=== PATIENT | female | born 1965 | race Caucasian/White ===

== ENCOUNTER 2019-07-22 10:23 | Emergency (ER) | payer MEDICARE, OTHER ==
[~2019-07-22] VITALS: Ht 167.6 cm; Wt 92.1 kg
[~2019-07-22 10:23] MED LIST: ARIP30TA3 PO
--- NOTE | 2019-07-22 10:40 | NUR ---
bib ra 89 and son, from home, "screaming and rolling on the ground",-si/hi, patient did not take her meds x 2 weeks, EMS gave her haldol and benadryl on scene. On room air, breathing evenly and unlabored. connected to the monitor and pulse ox. son and at bedside, patient verbalized that she is not suicidal or monicidal. Will continue to monitor accordingly.
[2019-07-22 11:06] LABS: BASOPHILS % (AUTO) 0.6 % (0.0-2.0); EOSINOPHILS % (AUTO) 3.4 % (0.0-6.0); HEMATOCRIT 41 % (33-45); HEMOGLOBIN 13.6 g/dL (11.5-14.8); LYMPHOCYTES # (AUTO) 2.1 /CMM (0.8-4.8); LYMPHOCYTES % (AUTO) 27.5 % (20.0-44.0); MEAN CORPUSCULAR HGB CONC 33 g/dl (31.0-36.0); MEAN CORPUSCULAR VOLUME 85 fL (82-100); MONOCYTES # (AUTO) 0.6 /CMM (0.1-1.30); MONOCYTES % (AUTO) 7.2 % (2.0-12.0); NEUTROPHILS # (AUTO) 4.7 /CMM (1.8-8.9); NEUTROPHILS % (AUTO) 61.3 % (43.0-81.0); PLATELET COUNT (AUTO) 360 /CMM (150-450); RED BLOOD CELL COUNT(AUTO) 4.86 MIL/uL (4.0-5.2); WHITE BLOOD COUNT (AUTO) 7.7 K/uL (4.3-11.0)
[2019-07-22 11:13] LABS: CALCIUM, SERUM 9.5 mg/dL (8.5-10.1); CARBON DIOXIDE 28 mmol/L (21-32); CHLORIDE 104 mmol/L (98-107); CREATININE 0.9 mg/dL (0.6-1.3); GLUCOSE 124 mg/dL (74-106); POTASSIUM 4.2 mmol/L (3.5-5.1); SODIUM SERUM 141 mmol/L (136-145); UREA NITROGEN, BLOOD 13 mg/dL (7-18)
[2019-07-22 11:19] LABS: ACETAMINOPHEN 0 ug/ml (10-30); ALANINE AMINOTRANSFERASE 34 U/L (12-78); ALBUMIN 3.4 g/dL (3.4-5.0); ALCOHOL, BLOOD < 3 mg/dL (0-0); ALKALINE PHOSPHATASE 113 U/L (46-116); ASPARTATE AMINOTRANSFERASE 17 U/L (15-37); BILIRUBIN,DIRECT 0.1 mg/dL (0.0-0.2); BILIRUBIN,TOTAL 0.2 mg/dL (0.2-1.0); SALICYLATE 1.3 mg/dL (2.8-20.0)
[2019-07-22] MEDS ORDERED: HALOPERIDOL LACTATE INJ 5 MG/ML VIAL IM ONE (11:30)
[2019-07-22] MEDS ORDERED: HALOPERIDOL LACTATE INJ 5 MG/ML VIAL ONE (11:32)
--- NOTE | 2019-07-22 11:42 | NUR ---
MEDICATED ORDERED, PT FORTINO WELL. PT CALM & COOPERATIVE, FAMILY & SITTER @ BS.
[2019-07-22 12:54] LABS: APPEARANCE,URINE Clear (CLEAR); BILIRUBIN,URINE Negative (NEGATIVE); BLOOD, URINE Trace-lysed Ery/uL (NEGATIVE); COLOR,URINE Yellow (YELLOW); KETONES,URINE Negative (NEGATIVE); LEUKOCYTE ESTERASE ,URINE Negative (NEGATIVE); NITRITE, URINE Negative (NEGATIVE); PROTEIN,URINE Negative (NEGATIVE); UGLUCOSE Negative (NEGATIVE); UROBILINOGEN,URINE 0.2 EU/dL (0.2)
[2019-07-22 13:01] LABS: BACTERIA,URINE Few /HPF (None Seen); SQUAMOUS EPITHELIAL CELL,UR Few /HPF (None Seen); WBC,URINE 0-2 /HPF (0-3)
--- NOTE | 2019-07-22 13:33 | NUR ---
LABOR OPERATOR ARMANI RANGEL 1HR
--- NOTE | 2019-07-22 14:25 | NUR ---
ARMANI ETA 20 MINUTES
--- NOTE | 2019-07-22 15:56 | NUR ---
Patient discharged to home in stable condition. Written and verbal after care instructions given. Patient verbalizes understanding of instruction.
[2019-07-22 15:57] VITALS: BP 124/80
== END 2019-07-22 15:57 | disposition home or self-care (01) ==
LOC: ER 10:30
DX: R44.0 Auditory hallucinations (principal); F32.9 Major depressive disorder, single episode, unspecified; Z79.899 Other long term (current) drug therapy
CPT/HCPCS: 36415; 80048; 80076; 80305; 80307; 80329; 81001; 85025; 96372; 99284; G0480; J1630; 81000-TC

== ENCOUNTER 2022-02-05 17:30 | Inpatient (IN) | payer MEDICARE, OTHER ==
[~2022-02-05] VITALS: Ht 162.6 cm; Wt 84.8 kg
--- NOTE | 2022-02-05 17:56 | NUR ---
DEB ([facility]) [phone]
--- NOTE | 2022-02-05 18:15 | NUR ---
BIBRA39 FROM HOME, PER EMS, FAMILY CALLED BECAUSE PATIENT WAS TRYING TO JUMP OFF WINDOW, HX OF PSYCH, TAKES HALDOL. THE PATIENT RESPONSIVE TO TACTILE STIMULI BY OPENING EYES. IN ROOM AIR AND DENIES SOB. RESPIRATION REGULAR AND UNLABORED. WILL CONTINUE TO MONITOR THE PATIENT.
--- NOTE | 2022-02-05 18:30 | NUR ---
COVID ANTIGEN COLLECTED AND SENT TO LAB
--- NOTE | 2022-02-05 18:32 | NUR ---
URINE SAMPLE COLLECTED AND SENT TO LAB
[2022-02-05 19:22] LABS: ALANINE AMINOTRANSFERASE 29 U/L (12-78); ALKALINE PHOSPHATASE 132 U/L (46-116); ASPARTATE AMINOTRANSFERASE 13 U/L (15-37); BILIRUBIN,TOTAL 0.1 mg/dL (0.2-1.0); CALCIUM, SERUM 8.7 mg/dL (8.5-10.1); CARBON DIOXIDE 26 mmol/L (21-32); CHLORIDE 109 mmol/L (98-107); GLUCOSE 162 mg/dL (74-106); POTASSIUM 4.1 mmol/L (3.5-5.1); SODIUM SERUM 142 mmol/L (136-145); TOTAL PROTEIN, SERUM 7.8 g/dL (6.4-8.2); UREA NITROGEN, BLOOD 22 mg/dL (7-18)
[2022-02-05 19:24] LABS: ACETAMINOPHEN < 2 ug/ml (10-30); ALCOHOL, BLOOD < 3 mg/dL (0-0)
[2022-02-05 19:51] LABS: BILIRUBIN,URINE NEGATIVE (NEGATIVE); COLOR,URINE YELLOW (YELLOW); LEUKOCYTE ESTERASE ,URINE NEGATIVE (NEGATIVE); NITRITE, URINE NEGATIVE (NEGATIVE); PROTEIN,URINE 30 mg/dl (NEGATIVE); UGLUCOSE NEGATIVE (NEGATIVE)
[2022-02-05 19:56] LABS: BASOPHILS # (AUTO) 0.1 K/uL (0.0-0.2); BASOPHILS % (AUTO) 0.6 % (0.0-2.0); EOSINOPHILS % (AUTO) 1.2 % (0.0-6.0); HEMATOCRIT 42 % (33-45); HEMOGLOBIN 13.6 g/dL (11.5-14.8); LYMPHOCYTES # (AUTO) 2.4 K/uL (0.8-4.8); LYMPHOCYTES % (AUTO) 22.8 % (20.0-44.0); MEAN CORPUSCULAR HGB CONC 32 g/dl (31.0-36.0); MEAN CORPUSCULAR VOLUME 79 fL (82-100); MONOCYTES % (AUTO) 9.5 % (2.0-12.0); NEUTROPHILS # (AUTO) 6.9 K/uL (1.8-8.9); NEUTROPHILS % (AUTO) 65.9 % (43.0-81.0); PLATELET COUNT (AUTO) 404 K/uL (150-450); RED BLOOD CELL COUNT(AUTO) 5.27 MIL/uL (4.0-5.2); WHITE BLOOD COUNT (AUTO) 10.5 K/uL (4.3-11.0)
[2022-02-05 20:02] LABS: BACTERIA,URINE None seen /HPF (None Seen); MUCUS,URINE Few /LPF (None Seen); SQUAMOUS EPITHELIAL CELL,UR 0-2 /HPF (None Seen); WBC,URINE 0-2 /HPF (0-3)
--- NOTE | 2022-02-05 21:48 | NUR ---
[facility]
[2022-02-05] MEDS ORDERED: HALOPERIDOL LACTATE INJ 5 MG/ML VIAL ONE (22:10)
[2022-02-05] MEDS ORDERED: diphenhydrAMINE HCL 50 MG/ML VIAL ONE (22:10)
[2022-02-05] MEDS ORDERED: LORAZEPAM INJ 2 MG/ML VIAL ONE (22:11)
[2022-02-05] MEDS ORDERED: LORAZEPAM INJ 2 MG/ML VIAL IM ONE (22:30)
[2022-02-05] MEDS ORDERED: diphenhydrAMINE HCL 50 MG/ML VIAL IM ONE (22:30)
[2022-02-05] MEDS ORDERED: HALOPERIDOL LACTATE INJ 5 MG/ML VIAL IM ONE (22:30)
--- NOTE | 2022-02-06 01:55 | NUR ---
REPORT GIVEN TO CAROLE FOR ANDREAS
--- NOTE | 2022-02-06 02:20 | NUR ---
PT TO GPS VIA [facility].
--- NOTE | 2022-02-06 02:20 | NUR ---
RN RECEIVING TRANSFER FROM ER NOTE PATIENT ARRIVED TO UNIT VIA GURNEY FROM ER. PATIENT WAS TRANSFERRED FROM GURNEY TO BED BY STAFF. PATIENT IS REPORTED TO BE SELECTIVELY MUTE FROM REPORT, AND WAS NON-RESPONSIVE TO THIS RN. BS CHECKED AND REVEALED TO BE 119. PATIENT IS ADMITTED ON A 5150 HOLD FOR GD. PATIENT WAS BIBA FROM HOME D/T ATTEMPTS AT JUMPING OUT OF WINDOW. PATIENT IS NON-VERBAL; HOWEVER, SHE HAD RECEIVED A HALDOL/ATIVAN/BENADRYL IN THE ER D/T HIGH AGITATION. PATIENT'S APPEARANCE IS RELATIVELY KEMPT. PATIENT IS MALODOROUS - SMELLING OF URINE. NO S/S OF DISTRESS; BREATHING SYMMETRICAL. PATIENT REFUSED TO SIGN NECESSARY INTAKE PAPERWORK BECAUSE SHE WAS AGITATED. PATIENT ADVISED OF HER HOLD AND GIVEN PATIENT'S RIGHTS BOOKLET. PATIENT'S BELONGINGS ACCOUNTED FOR, LOGGED INTO SHEET, AND PLACED IN PHYSICAL CHART. CONTRABAND FOUND WAS A STRING IN HER SHORTS; CONTRABAND REMOVED AND STORED IN HALLWAY PATIENT LOCKER. PATIENT'S SKIN WAS ASSESSED, PHOTOS TAKEN, AND PLACED IN CHART. PATIENT WAS ORIENTED TO THE UNIT. SAFETY MEASURES IN PLACE: BED LOCKED, AT LOWEST POSITION, RAILS UP X2, BED ALARM ON. WILL CONTINUE TO MONITOR PATIENT.
[2022-02-06] MEDS ORDERED: LORAZEPAM 1 MG TABLET PO PRN (04:00)
[2022-02-06] MEDS ORDERED: TEMAZEPAM 15 MG CAPSULE PO PRN (04:00)
[2022-02-06 08:00] VITALS: BP 141/86
[2022-02-06] MEDS ORDERED: HALO2TAB PO (09:18)
--- NOTE | 2022-02-06 10:48 | NUR ---
AGATA Initial Discharge Plan: Patient currently resides at [address] [place] [address] Apt [facility], [place] [address]; ([phone]). Patient lives with Esteban ([phone]). AGATA spoke with patient's son Vamsi ([phone]) who stated that pt will return back home upon discharge. AGATA will coordinate with pt, family, and treatment team to help coordinate appropriate discharge.
--- NOTE | 2022-02-06 10:49 | NUR ---
AGATA Family Contact: AGATA contacted patient's son Vamsi ([phone]) to gather collateral and discuss treatment plan and discharge plan. Vamsi stated that pt will return back home upon discharge.
--- NOTE | 2022-02-06 10:50 | NUR ---
SW Clinical Note: Patient placed on a 5150 hold for GD. Patient threatened to bash a window at home. Patient has been aggressive at home and has been experiencing hallucinations. Patient currently resides at [address] [place] [address]; ([phone]). Patient lives with Esteban ([phone]) and son Vamsi ([phone]).
[2022-02-06 16:00] VITALS: BP 153/87
--- NOTE | 2022-02-06 19:00 | NUR ---
Opening Notes" alert sitting on the edge of her bed smiling when I walked in she was talkative...about she is from [place], how the the words I speak sound differt from the sound of the cymraes language. requested water and was nice and cooperative says "thank-you" appropriately made her aware I would be checking on her for safety
[2022-02-06 19:28] VITALS: BP 145/86
[2022-02-06 20:07] VITALS: BP 145/86
--- NOTE | 2022-02-07 06:10 | NUR ---
CLOSING NOTES: alert and orientated X2 stayed in her room this 12 hours. medicated for insomnia with Restoril 15 mg and effective sleeping 7 hours She enjoys talking about herself. From [place] and words sound different here in [place]. Cooperative and medicine compliant
[2022-02-07 08:00] VITALS: BP 134/78
[2022-02-07] MEDS: HALOPERIDOL 5 MG TABLET PO SCH ×3 (08:38→17:48)
[2022-02-07] MEDS: DIVALPROEX SODIUM 250 MG TABLET.DR PO SCH ×3 (08:38→17:48)
[2022-02-07] MEDS: BENZTROPINE MESYLATE (1 MG) 1 MG TABLET PO SCH ×3 (08:38→17:48)
--- NOTE | 2022-02-07 08:51 | NUR ---
Individual Therapy: SW attempted to conduct therapy. Pt was blankly staring and was unable to have a proper conversation. Pt did not respond to this real estate underwriter. Pt appeared withdrawn in her room. SW unable to conduct therapy at this time.
--- NOTE | 2022-02-07 09:21 | NUR ---
RN-CO: Patient was given Ativan 1 mg po for heavily responding to internal stimuli and severly paranoid.
[2022-02-07 16:00] VITALS: BP 143/77
--- NOTE | 2022-02-07 19:45 | NUR ---
GPS RN OPENING NOTES: RECEIVED PATIENT WATCHING TV IN DAY ROOM. A/O X1-2, PASSIVE, DISORIENTED, DISORGANIZED. RESPONDING INTERMITTENTLY, REORIENTED PATIENT TO PRESENT SITUATION. DENIES PAIN, DENIES SI AT THIS TIME. V/S WNL. NO S/S OF DISTRESS. RESPIRATION EVEN AND UNLABORED WITH EQUAL RISE AND FALL OF THE CHEST, ON ROOM AIR. OFFERED FLUID AND SNACKS TOLERATED. WILL CONTINUE TO MONITOR Q15 FOR MOOD, SAFETY AND BEHAVIOR.
[2022-02-07 20:00] VITALS: BP 128/81
--- NOTE | 2022-02-08 06:39 | NUR ---
GPS RN CLOSING NOTES: PATIENT IS CURRENTLY SLEEPING IN BED. PATIENT SLEPT 9HRS THIS SHIFT. NO S/S OF DISTRESS. RESPIRATION EVEN AND UNLABORED WITH EQUAL RISE AND FALL OF THE CHEST, ON ROOM AIR. BED IN LOW LOCKED POSITION, SIDE RAILS UP X2 FOR SAFETY, CALL LAMAR WITHIN REACH. ALL PATIENT CARE NEEDS HAVE BEEN MET ANTICIPATED. WILL CONTINUE TO MONITOR Q15 FOR SAFETY, MOOD AND BEHAVIOR AND ENDORSE TO AM SHIFT.
--- NOTE | 2022-02-08 07:15 | NUR ---
WOUND CARE CONSULT: PT RESTING AT THIS TIME. REVIEWED CHART, NURSING DOCUMENTATION AND SPOKE WITH NURSING STAFF. PER ADMISSION PHOTOS, THERE ARE AREAS OF PATCHY SKIN LESIONS, PRESENT ON ADMISSION. DEFER TO PMD. CURRENT REJI SCORE IS 19. WILL SEE PRN.
[2022-02-08 08:00] VITALS: BP 149/84
[2022-02-08] MEDS: BENZTROPINE MESYLATE (1 MG) 1 MG TABLET PO SCH ×3 (08:31→16:41)
[2022-02-08] MEDS: DIVALPROEX SODIUM 250 MG TABLET.DR PO SCH ×3 (08:31→16:41)
[2022-02-08] MEDS: HALOPERIDOL 5 MG TABLET PO SCH ×3 (08:31→16:41)
[2022-02-08 16:00] VITALS: BP 131/77
--- NOTE | 2022-02-08 18:32 | NUR ---
RN-NOTES PATIENT IN HER ROOM SITTING IN BED ALERT X1 INTERACTING WITH HER SON AT BED SIDE,GUARDED RESPONDING TO INTERNAL STIMULI/NOTED PATIENT TALKING AND SINGING TO SELF. COMPLIANT WITH MEDICATIONS. AMBULATORY STEADY GAIT.ALL NEEDS ATTENDED AND ANTICIPATED. WILL CONT. MONITORING FOR SAFETY AND BEHAVIOR.WILL ENDORSE TO INCOMING NURSE FOR CONTINUITY OF CARE.
--- NOTE | 2022-02-08 19:30 | NUR ---
GPS RN OPENING NOTE RECEIVED PT IN BED AWAKE, SON AT BEDSIDE. A/OX2. PT STABLE ON ROOM AIR. NO SOB OR S/S OF RESPIRATORY DISTRESS. BREATHING EVEN AND UNLABORED. NO COMPLAINTS OF PAIN AT THIS TIME. PT RESPONDS TO INTERNAL STIMULI AND IS DISORGANIZED. PT DENIES SUICIDAL OR HOMICIDAL IDEATION AT THIS TIME. SAFETY PRECAUTIONS IN PLACE. BED IN LOWEST LOCKED POSITION, SIDE RAILS RAISED, BED ALARM ON, AND CALL LIGHT WITHIN REACH. ALL NEEDS MET AT THIS TIME.
[2022-02-08 20:00] VITALS: BP 158/89
[2022-02-08 21:23] VITALS: BP 117/53
--- NOTE | 2022-02-09 06:43 | NUR ---
GPS RN CLOSING NOTE PT IN BED AWAKE. A/OX2. PT STABLE ON ROOM AIR. NO SOB OR S/S OF RESPIRATORY DISTRESS. BREATHING EVEN AND UNLABORED. NO COMPLAINTS OF PAIN AT THIS TIME. PT RESPONDS TO INTERNAL STIMULI AND IS DISORGANIZED. PT DENIES SUICIDAL OR HOMICIDAL IDEATION AT THIS TIME. ALL DUE MEDS GIVEN ORDERED. SAFETY PRECAUTIONS IN PLACE AT ALL TIMES. BED IN LOWEST LOCKED POSITION, SIDE RAILS RAISED, BED ALARM ON, AND CALL LIGHT WITHIN REACH. ALL NEEDS MET AT THIS TIME AND WILL ENDORSE TO ONCOMING NURSE FOR ANDREAS.
[2022-02-09 08:00] VITALS: BP 128/99
[2022-02-09] MEDS: BENZTROPINE MESYLATE (1 MG) 1 MG TABLET PO SCH ×3 (08:54→17:56)
[2022-02-09] MEDS: HALOPERIDOL 5 MG TABLET PO SCH ×3 (08:54→17:56)
[2022-02-09] MEDS: DIVALPROEX SODIUM 250 MG TABLET.DR PO SCH ×3 (08:54→17:56)
--- NOTE | 2022-02-09 10:27 | NUR ---
Individual Therapy: SW attempted to conduct therapy. Pt was unable to maintain proper eye contact. Pt was responding to internal stimuli. SW unable to conduct appropriate therapy at this time.
[2022-02-09 16:00] VITALS: BP 117/81
--- NOTE | 2022-02-09 19:07 | NUR ---
NOTED LEONIDAS LOWER EXT EDMA Tasneem trinh QUALITY CONTROL LAB TECH NOTIFIED NEW ORDER DOPPLER US .ALL ORDERS CARRIED OUT .
--- NOTE | 2022-02-09 19:15 | NUR ---
GPS RN NOTES RECEIVED PATIENT IN BED RESTING IN BED. ALERT AND ORIENTED X2. NO S/SX OF ACUTE DISTRESS NOTED. PATIENT REMAINS ISOLATIVE, WITHDRAWN, COOPERATIVE TO CARE. ENCOURAGED TO ATTEND GROUP ACTIVITIES. SAFETY PRECAUTIONS IN PLACE. WILL CONTINUE TO MONITOR Q15MIN ROUNDS FOR SAFETY AND BEHAVIOR.
--- NOTE | 2022-02-09 19:36 | NUR ---
GPS RN NOTES SPOKE TO DENIS FROM RADIOLOGY DEPARTMENT REGARDING DOPPLER VENOUS BILATERAL EXTREMITIES THE ETA TO PERFORM THE PROCEDURE. PER DENIS, HE WILL CONTACT THE ON-CALL AND GIVE US A CALL BACK. Addendum: 02/10/22 at 0608 by ELANA HERNANDEZ RN TRIED TO CALL RADIOLOGY DEPARTMENT NO ONE IS ANSWERING THE PHONE. WILL ENDORSE TO AM SHIFT FOR CONTINUITY OF CARE.
[2022-02-10 08:00] VITALS: BP 125/72
[2022-02-10] MEDS: BENZTROPINE MESYLATE (1 MG) 1 MG TABLET PO SCH ×3 (08:20→16:19)
[2022-02-10] MEDS: DIVALPROEX SODIUM 250 MG TABLET.DR PO SCH ×3 (08:20→16:19)
[2022-02-10] MEDS: HALOPERIDOL 5 MG TABLET PO SCH ×3 (08:20→21:38)
--- NOTE | 2022-02-10 09:00 | NUR ---
GPS/RN RECEIVED PATIENT RESTING IN HER BED. NO ACUTE DISTRESS NOTED. VSS.TALKS TO HERSELF. COMPLIANT WITH DAILY MEDICATIONS. AMBULATORY STEADY GAIT. ALL NEEDS ATTENDED AND ANTICIPATED. WILL CONTINUE MONITORING Q 15MIN FOR SAFETY AND BEHAVIOR.
--- NOTE | 2022-02-10 15:57 | NUR ---
Called the radiology and spoke to Joel regarding the Duplex Venous on the lower extremities and he gave the number of Joel at [phone] and nobody is answering and can not leave a message. Called Joel again and said he will let him know.
[2022-02-10 16:00] VITALS: BP 129/76
--- NOTE | 2022-02-10 16:53 | NUR ---
Called [phone] and spoke to Puma and said he will send someone to scan today.
[2022-02-10 20:39] VITALS: BP 120/68
--- NOTE | 2022-02-11 01:45 | NUR ---
RN NOTES: RECEIVED PATIENT IN BED ACCOMPANIED BY FAMILY, APPEARS CALM AND ON PLEASANT DISPOSITION,NO COMPLAIN OF PAIN AND DISCOMFORT AT THIS TIME, ON ROOM AIR SATURATING WELL, NO ACUTE DISTRESS WAS OBSERVED, ON MEDICATION COMPLIANCE, AMBULATORY,ON STABLE GAIT, WITH SUPERVISION, Q15MIN FOR SAFETY AND BEHAVIOR.PATIENT KEPT CLEAN AND DRY PLACED COMFORTABLY IN BED, ALL NEEDS MET WILL CONTINUE TO MONITOR.
[2022-02-11 08:06] VITALS: BP 152/80
[2022-02-11] MEDS: HALOPERIDOL 5 MG TABLET PO SCH ×3 (08:27→21:33)
[2022-02-11] MEDS: BENZTROPINE MESYLATE (1 MG) 1 MG TABLET PO SCH ×3 (08:27→16:48)
[2022-02-11] MEDS: DIVALPROEX SODIUM 250 MG TABLET.DR PO SCH ×3 (08:28→16:48)
[2022-02-11 16:07] VITALS: BP 150/79
[2022-02-11 21:47] VITALS: BP 152/86
--- NOTE | 2022-02-11 23:00 | NUR ---
GPS RN NOTES PT RESTING IN BED. A/O X2. BREATHING EVEN AND NON-LABORED ON ROOM AIR. NOT IN APPARENT DISTRESS. GUARDED, UNKEMPT, DISHEVELED. ENGAGES IN CONVERSATION W/ NURSE. AMBULATORY W/ STEADY GAIT. COMPLIANT WITH MEDS. ALL NEEDS ATTENDED AND ANTICIPATED. WILL CONTINUE MONITORING Q15MIN FOR SAFETY AND BEHAVIOR.
--- NOTE | 2022-02-12 06:12 | NUR ---
WEEKLY SKIN ASSESSMENT DONE AND PHOTOS TAKEN. PT COOPERATIVE AND ENGAGES IN CONVERSATION.
[2022-02-12 08:00] VITALS: BP 139/77
[2022-02-12] MEDS: DIVALPROEX SODIUM 250 MG TABLET.DR PO SCH ×3 (09:23→17:49)
[2022-02-12] MEDS: BENZTROPINE MESYLATE (1 MG) 1 MG TABLET PO SCH ×3 (09:23→17:49)
[2022-02-12] MEDS: HALOPERIDOL 5 MG TABLET PO SCH ×3 (09:23→21:38)
[2022-02-12 16:00] VITALS: BP 150/85
--- NOTE | 2022-02-12 16:22 | NUR ---
Individual Counseling: SW met with pt. for individual counseling. Pt. stated her mood is happy. Pt. appeared with euthymic mood & affect. Pt. discussed her support system includes her family. SW used active listening. Pt. stated she wants to speak to her son and SW informed pt. she can call him. Pt. stated she would call her son now.
[2022-02-12 19:37] VITALS: BP 142/78
--- NOTE | 2022-02-12 20:32 | NUR ---
RN NOTES DOC. RAHEL WAS INFORM REGARDING DOPPLER VENOUS BLE DONE RESULT NEGATIVE FOR DVT ON 02/10/22.PT SON IS REQUESTING FOR MED THAT CAN DECREASE SWELLING..DOC. REPLIED HE SAID I DONT KNOW ANYTHING ABOUT THE PT.ENDORSE TO CONTACT DAY SHIFT PLZ.
[2022-02-13 08:00] VITALS: BP 125/75
--- NOTE | 2022-02-13 08:00 | NUR ---
RN-CO: Instructed patient to elevate bilateral ext. Pt verbalized understanding.
[2022-02-13] MEDS: BENZTROPINE MESYLATE (1 MG) 1 MG TABLET PO SCH ×3 (08:13→16:46)
[2022-02-13] MEDS: HALOPERIDOL 5 MG TABLET PO SCH ×3 (08:13→21:30)
[2022-02-13] MEDS: DIVALPROEX SODIUM 250 MG TABLET.DR PO SCH ×2 (08:13→16:46)
--- NOTE | 2022-02-13 09:35 | NUR ---
RN-CO: PT IS SITTING IN ACTIVITY ROOM. NO ACUTE DISTRESS NOTED.VSS. COMPLIANT WITH 1300 MEDICATIONS. AMBULATORY STEADY GAIT. ALL NEEDS ATTENDED AND ANTICIPATED. WILL CONTINUE MONITORING Q 15MIN FOR SAFETY AND BEHAVIOR.
--- NOTE | 2022-02-13 10:00 | NUR ---
RN-CO: Instructed pt to elevate bilateral lower ext.
--- NOTE | 2022-02-13 12:03 | NUR ---
Court Notification: SW attempted to contact pt's Esteban ([phone]) and left a voicemail of [phone] hearing is today.
[2022-02-13] MEDS ORDERED: ACETAMINOPHEN 325 MG TABLET PO PRN (13:00)
[2022-02-13] MEDS ORDERED: BLOOD SUGAR DIAGNOSTIC 1 EACH STRIP IN ONE (13:00)
[2022-02-13] MEDS ORDERED: MAG HYDROX/AL HYDROX/SIMETH 30 ML UDC PO PRN (13:00)
[2022-02-13] MEDS ORDERED: TEMAZEPAM 7.5 MG CAPSULE PO PRN (13:00)
[2022-02-13] MEDS ORDERED: MAGNESIUM HYDROXIDE 30 ML UDC PO PRN (13:00)
--- NOTE | 2022-02-13 13:40 | NUR ---
Court Hearing: Patient's court hearing for [id number] was today and it was upheld for GD.
--- NOTE | 2022-02-13 14:04 | NUR ---
RN-CO: Patient refused blood sugar check, she stated " I don't like taht I am not diabetic."
[2022-02-13 16:00] VITALS: BP 131/71
--- NOTE | 2022-02-13 18:42 | NUR ---
RN-CO: Paged Dr Nayak regarding patient's bilateral lower extremities edema.
--- NOTE | 2022-02-13 19:15 | NUR ---
GPS RN NOTES PATIENT IN BED RESTING COMFORTABLY. ALERT AND ORIENTED X2. NO S/SX OF ACUTE DISTRESS NOTED. PATIENT IS COOPERATIVE TO CARE, WITH LIMITED INTERACTION WITH PEERS, INSTRUCTED PATIENT TO ELEVATE BILATERAL LOWER EXTREMITIES TO DECREASE SWELLING. PATIENT VERBALIZED UNDERSTANDING. ENCOURAGED TO ATTEND IN GROUP ACTIVITIES. NO VERBALIZATION OF THOUGHTS AND FEELINGS. SAFETY PRECAUTIONS IN PLACE. WILL CONTINUE TO MONITOR Q15MIN ROUNDS FOR SAFETY AND BEHAVIOR.
[2022-02-13 21:18] VITALS: BP 125/68
[2022-02-13] MEDS: DIVALPROEX SODIUM 500 MG TABLET.DR PO SCH (21:30)
[2022-02-14 07:17] LABS: CHOLESTEROL 170 mg/dL (<200); HDL CHOLESTEROL 37 mg/dL (40-60); LDL 113 mg/dL (0-99); TRIGLYCERIDES 142 mg/dL (30-150)
[2022-02-14 07:19] LABS: ALBUMIN 2.5 g/dL (3.4-5.0); BILIRUBIN,TOTAL 0.2 mg/dL (0.2-1.0); CALCIUM, SERUM 8.3 mg/dL (8.5-10.1); CREATININE 0.7 mg/dL (0.6-1.3); POTASSIUM 4.3 mmol/L (3.5-5.1); TOTAL PROTEIN, SERUM 6.7 g/dL (6.4-8.2)
[2022-02-14 08:00] VITALS: BP 135/80
[2022-02-14] MEDS: HALOPERIDOL 5 MG TABLET PO SCH ×3 (08:27→21:47)
[2022-02-14] MEDS: BENZTROPINE MESYLATE (1 MG) 1 MG TABLET PO SCH ×3 (08:27→16:21)
[2022-02-14] MEDS: DIVALPROEX SODIUM 250 MG TABLET.DR PO SCH ×2 (08:27→16:21)
[2022-02-14] MEDS: METFORMIN 500 MG TABLET PO SCH ×2 (09:57→17:14)
[2022-02-14 16:00] VITALS: BP 131/78
--- NOTE | 2022-02-14 17:38 | NUR ---
RN-NOTES PATIENT IS VISIBLE IN THE UNIT,MINIMAL PARTICIPATIONS WITH THE GROUPS,NO ACUTE DISTRESS NOTED. COMPLIANT WITH MEDICATIONS. NOTED PATIENT TALKING TO SELF. AMBULATORY STEADY GAIT. ALL NEEDS ATTENDED AND ANTICIPATED. WILL CONT. MONITORING FOR SAFETY AND BEHAVIOR.WILL ENDORSE TO INCOMING NURSE FOR CONTINUITY OF CARE.
--- NOTE | 2022-02-14 19:34 | NUR ---
GPS RN OPENING NOTES: RECEIVED PATIENT IN ROOM, CHATTING WITH A VISITOR. A/O X2, APPROPRIATE AFFECT, DISORGANIZED, PASSIVE, COOPERATIVE. DENIES PAIN, DENIES SI AT THIS TIME. V/S WNL. NO S/S OF DISTRESS. RESPIRATION EVEN AND UNLABORED WITH EQUAL RISE AND FALL OF THE CHEST, ON ROOM AIR. OFFERED FLUID AND SNACKS TOLERATED. WILL CONTINUE TO MONITOR Q15 FOR MOOD, SAFETY AND BEHAVIOR.
[2022-02-14 20:00] VITALS: BP 125/79
[2022-02-14] MEDS: DIVALPROEX SODIUM 500 MG TABLET.DR PO SCH (21:48)
[2022-02-15 08:00] VITALS: BP 127/75
--- NOTE | 2022-02-15 08:05 | NUR ---
SW Discharge Note: Patient will be discharge back home located at [address] [facility] [address], [place] [address]; ([phone]). Patients Esteban ([phone]) will knot picker cloth pt between 12-2PM. Patient lives with Esteban ([phone]) and son Vamsi ([phone]) are aware of discharge. Patient is alert and oriented x2. Patient happy to be going back home. Patient denies visual/auditory hallucinations. Patient denies suicidal or homicidal ideation. Patient will follow up with (Business Planning Manager) Dr. Rosalinda Austin located at [facility] located at [address] [place] [address]; ([phone]) on February 27 at 3:30PM via telehealth who will monitor and provide pts psychotropic medications. Banking Consultant will refer pt to a psychiatrist. Patient presents with euthymic mood and congruent affect.
[2022-02-15] MEDS: METFORMIN 500 MG TABLET PO SCH (08:08)
[2022-02-15] MEDS: BENZTROPINE MESYLATE (1 MG) 1 MG TABLET PO SCH ×2 (08:24→12:21)
[2022-02-15] MEDS: DIVALPROEX SODIUM 250 MG TABLET.DR PO SCH (08:24)
[2022-02-15] MEDS: HALOPERIDOL 5 MG TABLET PO SCH (08:24)
--- NOTE | 2022-02-15 12:31 | NUR ---
RN-DISCHARGE NOTES PATIENT HAD DISCHARGE ORDER FROM DR. SAINZ ( PSYCHIATRIST) ,JAVON MARR MEDICALLY CLEARED PATIENT FOR DISCHARGE. PATIENT LEFT THE UNIT IN STABLE CONDITION A/O X3 AMBULATORY STEADY GAIT ,VITAL SIGNS FF:BP 120/68,P70 AND R16, TEMP. 97.8, O2 SAT 98% RA. DISCHARGE MEDICATIONS WAS REVIEWED WITH THE PATIENT WITH UNDERSTANDING. INSTRUCTED PATIENT TO FOLLOW UP WITH PCP ON January @ 3:30 PM OR NEEDED AND GO TO THE NEAREST EMERGENCY FACILITY [facility]. ALL RX WAS GIVEN TO THE PATIENT AND ALL BELONGINGS. 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
== END 2022-02-15 12:30 | disposition home or self-care (01) | DRG 885 ==
LOC: ER 17:32 → GPS 02-06 01:23
PROVIDERS: ADMIT Psychiatry & Neurology Psychiatry; ATTEND Internal Medicine
DX: F31.64 Bipolar disorder, current episode mixed, severe, with psychotic features (principal); R45.851 Suicidal ideations; Z20.822 Contact with and (suspected) exposure to COVID-19; Z79.899 Other long term (current) drug therapy; Z73.6 Limitation of activities due to disability; E11.21 Type 2 diabetes mellitus with diabetic nephropathy; R79.89 Other specified abnormal findings of blood chemistry
CPT/HCPCS: 36415; 80048-TC; 80053-TC; 80061-TC; 80076-TC; 80164-TC; 81001; 82962-TC; 85025-TC; 87081-TC; 93970-TC; C9803; G0480; J1200; J1630; J2060